=== PATIENT | female | born 1955 | race Two or more races ===

== ENCOUNTER 2018-01-02 08:15 | Outpatient (CLI) | payer OTHER | END 2018-01-02 08:28 | disposition home or self-care (01) | LOC: SONOGRAMA 08:15 | DX: E04.2 Nontoxic multinodular goiter (principal) ==

== ENCOUNTER 2018-07-17 08:51 | Outpatient (CLI) | payer OTHER | END 2018-07-17 08:56 | disposition home or self-care (01) | LOC: SONOGRAMA 08:51 | DX: E04.2 Nontoxic multinodular goiter (principal) ==

== ENCOUNTER 2021-02-02 09:43 | Outpatient (CLI) | payer OTHER | END 2021-02-02 09:49 | disposition home or self-care (01) | LOC: SONOGRAMA 09:43 | PROVIDERS: ATTEND Pathology Anatomic Pathology & Clinical Pathology | DX: D34 Benign neoplasm of thyroid gland (principal); E04.2 Nontoxic multinodular goiter ==